=== PATIENT | female | born 1970 | race Hispanic/Latino ===

== ENCOUNTER 2023-05-14 18:27 | Inpatient (IN) | payer SELFPAY ==
--- OUTSIDE RECORDS SUMMARY | 2023-05-14 18:30 | XMS REPORT | Continuity of Care Document ---
Author Name Unknown Address [address] [place] [address] [facility] thconnect Address [address] [place] [address] Care Team Providers Care Recycling Manager Name Role Phone Pcp, Patient Does Not Have A Primary Care Physic niki Yoon Reilly Attending Clinician [phone] Doctor Unassigned, [place] Attending Clinician [facility], Adc Fam Pob I Attending Clinician Unavailab Dorothy Lira Attending Clinician [phone] DROOTHY KOCH Attending Clinician Unavailable Carol Ann Mendoza Attending Clinician [phone] Karrie Perkins MD Attending Clinician [phone] KARRIE PERKINS Attending Clinician Unavailable KARRIE PERKINS Admitting Clinician Unavailable Payers Payer Name Policy Type Policy Number Effective Date Expirati on Date Source COVID19 HRSA UNINSURED [id number] 2020 00:00:00 2020 00:00:00 Allergies, Adverse Reactions, Alerts Allergy Name Allergy Type Status Severity Reaction(s) Onset Date Inactive Date Treating Clinician Comments Source NO KNOWN ALLERGIE S Drug Class Active [facility] Social History Social Habit Start Date Stop Date Quantity Comments Source Sexual orientation U [facility] Sex Assigned At [facility] Exposure to SARS-CoV-2 (event) Not sure [facility] Smoking Status Start Date Stop Date Source Unknown if ever smoked [facility] Medications Ordered Medication Name Filled Medication Name Start Date Stop Date Current Medication? Ordering Clinician Indication Dosage Frequency Signature (SIG) Comments Components Source iohexol (OMNIPAQUE 350 BULK-100 mL) injection 120 mL 09-23 06:15: 00 09-23 06:04 :00 No 120mL 120 mL, Intravenou s, ONCE, 1 dose, 09/24/19 at 0115, Routine [facility] piperacilli n-tazobacta m (ZOSYN) 3.375 gram/50 mL Piggyback RTU 3.375 g 09-23 05:53: 00 09-23 06:51 :00 No 3.375g 3.375 g, IV Piggyback, ONCE, 1 dose, 09/24/19 at 0100, 50 mL
Reas on for Anti-Infec tive: Documented Infection< br>Documen jose Infection Site: Abdominal< br>Duratio n of Therapy: Other (see Comments) [facility] NaCl 0.9% (NS) bolus infusion 1,000 mL 09-23 03:45: 00 09-23 05:00 :00 No 1000mL at 999 mL/hr, 1,000 mL, IV Infusion, ONCE, 1 dose, 09/23/19 at 2245, BIJAN [facility] ondansetron (ZOFRAN (PF)) injection 4 mg 09-23 03:34: 00 09-23 03:51 :00 No 4mg 4 mg, Slow IV Push, ONCE, 1 dose, 09/23/19 at 2245, BIJAN [facility] morpHINE injection 4 mg 09-23 03:34: 09-23 03:51 :00 No 4mg 4 mg, Slow IV Push, ONCE, 1 dose, 09/23/19 at 2245, STAT [facility] traMADol (ULTRAM) 50 mg tablet 09-23 00:00: 00 Yes [id number] 50mg Take 1 tablet by mouth every 6 (six) hours as needed for Pain (scale 7-10). [facility] traMADol (ULTRAM) 50 mg tablet 09-23 00:00: 00 Yes [id number] 50mg Take 1 tablet by mouth every 6 (six) hours as needed for Pain (scale 7-10). [facility] traMADol (ULTRAM) 50 mg tablet 09-23 00:00: 00 Yes [id number] 50mg Take 1 tablet by mouth every 6 (six) hours as needed for Pain (scale 7-10). [facility] traMADol (ULTRAM) 50 mg tablet 09-23 00:00: 00 Yes [id number] 50mg Take 1 tablet by mouth every 6 (six) hours as needed for Pain (scale 7-10). [facility] Vital Signs Vital Name Observation Time Observation Value Comments S deepak Systolic blood pressure 2019-09-24 10:33:00 126 mm[Hg] [facility] Diastolic blood pressure 2019-09-24 10:33:00 78 mm[Hg] [facility] Heart rate 2019-09-24 10:33:00 67 /min [facility] Respiratory rate 2019-09-24 10:33:00 18 /min [facility] Oxygen saturation in Arterial blood by Pulse oximetry 2019-09-24 10:33:00 98 /min [facility] Body temperature 2019-09-24 03:27:[address] [facility] Body weight 2019-09-24 03:27:00 72.576 kg [facility] Procedures Procedure Date / Time Performed Performing Clinician Source REFERRAL- REQUEST/RESPONSE 2023-02-18 05:01:00 Doctor Unassigned, [place] [facility] COVID-19 (PCR MOLECULAR TESTING) 2019-09-24 08:00:[address] [facility] LACTIC ACID WHOLE BLOOD 2019-09-24 06:21:[address] [facility] URINALYSIS 2019-09-24 05:23:00 Carol Ann Henderson Unive [facility] LIPASE 2019-09-24 03:55:00 Carol Ann Henderson [facility] HEPATIC FUNCTION PANEL ([id number]) (ALB,T.PRO,BILI T,BU/BC,ALT,AST,ALK PHOS) 2019-09-24 03:55:[address] [facility] BASIC METABOLIC PANEL (NA, K, CL, CO2, GLUCOSE, BUN, CREATININE, CA) 2019-09-24 03:55:[address] [facility] CBC WITH DIFFERENTIAL 2019-09-24 03:55:[address] [facility] NOTICE OF PRIVACY PRACTICES 2019-09-24 03:09:46 Doctor Unassigned, [place] [facility] CONSENT/REFUSAL FOR DIAGNOSIS AND TREATMENT 2019-09-24 03:09:31 Doctor Unassigned, [place] [facility] Encounters Start Date/Time End Date/Time Encounter Type Admission Type Attending [facility] Facility Care Department Encounter ID Source 2023-05-11 16:12:18 2023-05-11 16:12:18 Outpatient [facility] [id number] Ignacio Eric Jaden 2023-04-14 10:51:43 2023-04-14 10:51:43 Outpatient [facility] [id number] Ignacio Eric Jaden 2023-03-01 00:00:00 2023-03-01 00:00:00 Letter (Out) Yoon Reilly [facility] 1..840.114 350.1.13.10 4.2.7.2.686 [id number] [facility] 2023-02-22 00:00:00 2023-02-22 00:00:00 Patient Secure Msg Doctor Unassigned, [place] [facility] 1..840.114 350.1.13.10 4.2.7.2.686 [id number] [facility] 2023-02-18 15:22:44 2023-02-18 15:22:[address] [facility] [id number] Ignacio Eric Jaden 2023-02-18 00:00:00 2023-02-18 00:00:00 Orders Only Doctor Unassigned, [place] [facility] 1.840.114 350.1.13.10 4.2.7.2.686 [id number] [facility] 2022-11-05 09:51:31 2022-11-05 09:51:31 [address] [id number] Ignacio Eric Jaden 2022-07-27 16:13:00 2022-07-27 16:13:00 Outpatient [facility] [id number] Ignacio Eric Osceola 2022-07-21 08:39:47 2022-07-21 08:39:47 Outpatient [facility] [id number] Ignacio Eric Osceola 2022-07-15 15:38:12 2022-07-15 15:38:12 Outpatient [facility] [id number] Ignacio Eric Osceola 2020-05-24 15:10:52 2020-05-24 15:30:52 Laboratory Only [facility] 1.840.114 350.1.13.10 4.2.7.2.686 [id number] [facility] 2020-05-24 15:00:00 2020-05-24 15:21:17 Outpatient Bern[facility] [id number] [facility] 2020-05-24 15:00:00 2020-05-24 15:00:00 [facility]patient [facility] [id number] [facility] 2019-09-23 22:32:32 2019-09-24 05:35:00 Emergency Carol Ann Henderson [facility] [facility] 1..840.114 350.1.13.10 4.2.7.2.686 [id number] [facility] 2019-09-23 22:32:32 2019-09-24 05:35:00 Emergency X KARRIE PERKINS [facility] ERT [id number] [facility] Results Test Description Test Time Test Comments Results Result Co mments Source COMPREHENSIVE METABOLIC [id number] 06:53:40* Test Item Value Reference Range Interpretation Comme nts GLUCOSE (test code = 7) 92 MG/DL 70-99 BUN (test code = 2207) 13 MG/DL 6-20 CREATININE (test code = 221) 1.00 MG/DL 0.60-1.30 eGFR (2020 CKD-EPI) (test code = 05590) 67 ML/MIN/1.73 >60 CALC BUN/CREAT (test code = 2235) 13 RATIO 6-28 SODIUM (test code = 2230) 141 MEQ/L 133-146 POTASSIUM (test code = 2228) 5.3 MEQ/L 3.5-5.4 CHLORIDE (test code = 5) 105 MEQ/L 95-107 CARBON DIOXIDE (test code = 6) 25 MEQ/L 19-31 CALCIUM (test code = 2208) 10.1 MG/DL 8.5-10.5 PROTEIN, TOTAL (test code = 2228) 7.5 G/DL 6.1-8.3 ALBUMIN (test code = 2201) 4.9 G/DL 3.5-5.2 CALC GLOBULIN (test code = 2240) 2.6 G/DL 1.9-3.7 CALC A/G RATIO (test code = 2234) 1.9 RATIO 1.0-2.6 BILIRUBIN, TOTAL (test code = 2206) 0.6 MG/DL See_Comment [Automated me ssage] The system which generated this result transmitted reference range: <=1.2. The reference range was not used to interpret this result as normal/abnormal. ALKALINE PHOSPHATASE (test code = 4) 99 U/L 40-133 AST (test code = 2218) 15 U/L 9-40 ALT (test code = 2219) 17 U/L 5-40 VITAMIN D, 25 [id number] 06:37:36* Test Item Value Reference Range Interpretation Comme nts VITAMIN D, 25 OH (test code = 4958) 20 NG/ML SEE BELOW L EFFECTIVE 01/2023, PLEASE NOTE NEW METHODOLOGY IS ELECTROCHEMILUMINESCENCE BINDING ASSAY. NOTE: 25-HYDROXYVITAMIN D ASSAY INCLUDES 25-HYDROXYVITAMIN D2 AND D3. INTERPRETIVE RANGES PEDIATRIC (<17 YEARS) . . . . . . . . . . . NG/ML 20-100ADULT: INSUFFICIENT . . . . . . . . . . . . . . NG/ML <20 SUBOPTIMAL . . . . . . . . . . . . . . . NG/ML 20-29 OPTIMAL . . . . . . . . . . . . . . . . . NG/ML 30-100 TSH, THIRD [id number] 06:37:27* Test Item Value Reference Range Interpretation Comme nts TSH, THIRD GENERATION (test code = 2821) 1.210 UIU/ML 0.400-4.100 HEMOGLOBIN [id number] 04:10:33* Test Item Value Reference Range Interpretation Comme [facility] HEMOGLOBIN A1c (test code = 65710) 5.7 % 4.2-5.6 H [employer] GUIDELINES FOR HGB A1C: PREDIABETES/INCREASED RISK . . . . . . . 5.7-6.4% DIAGNOSIS OF DIABETES . . . . . . . . . >=6.5% WITH CONFIRMATION OR APPROPRIATE SYMPTOMS NOTE: ASSAY MAY BE AFFECTED BY HEMOGLOBINOPATHIES (SICKLE CELL ANEMIA, S-C DISEASE, OTHERS) OR ARTIFICIALLY LOWERED BY DECREASED RED CELL SURVIVAL (HEMOLYTIC ANEMIAS, BLOOD LOSS, ETC.). CONSIDER ALTERNATE TESTING OR LABORATORY CONSULTATION. CBC W/AUTO DIFF WITH [id number] 02:11:52* Test Item Value Reference Range Interpretation Comme nts WBC (test code = 1001) 6.3 K/UL 3.5-11.0 RBC (test code = 1002) 5.30 M/UL 3.80-5.40 HEMOGLOBIN (test code = 1003) 16.4 G/DL 11.5-15.5 H HEMATOCRIT (test code = 1004) 49.3 % 34.0-45.0 H MCV (test code = 1005) 93.0 fL 80.0-99.0 MCH (test code = 1006) 30.9 PG 25.0-33.0 MCHC (test code = 1007) 33.3 G/DL 31.0-36.0 RDW (test code = 1038) 12.2 % 11.5-15.0 NEUTROPHILS (test code = 1008) 54.4 % LYMPHOCYTES (test code = 1010) 38.3 % MONOCYTES (test code = 1011) 5.1 % EOSINOPHILS (test code = 1012) 1.4 % BASOPHILS (test code = 1013) 0.6 % IMMATURE GRANULOCYTES (test code = 1036) 0.2 % NUCLEATED RBCS (test code = 1065) 0.0 /100 WBC'S See_Comment [Automated message] The system which generated this result transmitted reference range: 0.0. The reference range was not used to interpret this result as normal/abnormal. PLATELET COUNT (test code = 1015) 379 K/UL 130-400 ABSOLUTE NEUTROPHILS (test code = 1066) 3.42 K/UL 1.50-7.50 ABSOLUTE LYMPHOCYTES (test code = 1067) 2.41 K/UL 1.00-4.00 ABSOLUTE MONOCYTES (test code = 1068) 0.32 K/UL 0.20-1.00 ABSOLUTE EOSINOPHILS (test code = 1040) 0.09 K/UL 0.00-0.50 ABSOLUTE BASOPHILS (test code = 1069) 0.04 K/UL 0.00-0.20 ABS IMMATURE GRANULOCYTES (test code = 1020) 0.01 K/UL 0.00-0.10 ABS NUCLEATED RBCS (test code = 26488) 0.00 K/UL 0.00-0.11 [facility] has important pathology staff changes effective 07/01/2022. New pathology staff will provide uninterrupted, excellent patient care and clinical consultation. See URL: [email or web address]. UNLESS OTHERWISE INDICATED, ALL TESTING PERFORMED AT [facility] [address] [place] [address] BEATER TENDER: HUONG MONTEZ M.D. CLIA NUMBER [id number] [facility] [place]. [id number] VITAMIN D, 25 [id number] 06:01:56* Test Item Value Reference Range Interpretation Comme nts VITAMIN D, 25 OH (test code = 4958) 30 NG/ML SEE BELOW NOTE: 25-HYDR OXYVITAMIN D ASSAY INCLUDES 25-HYDROXYVITAMIN D2 AND D3. METHODOLOGY IS CHEMILUMINESCENT IMMUNOASSAY. INTERPRETIVE RANGES PEDIATRIC (<17 YEARS) . . . . . . . . . . . NG/ML 20-100ADULT: INSUFFICIENT . . . . . . . . . . . . . . NG/ML <20 SUBOPTIMAL . . . . . . . . . . . . . . . NG/ML 20-29 OPTIMAL . . . . . . . . . . . . . . . . . NG/ML 30-100 UNLESS OTHERWISE INDICATED, ALL TESTING PERFORMED [facility] [address] [place] [address] BEATER TENDER: MILY ROMERO M.D. CLIA NUMBER [id number] [place]. [id number] LIPID [id number] 02:54:12* Test Item Value Reference Range Interpretation Comme nts CHOLESTEROL (test code = 2210) 243 MG/DL <200 H TRIGLYCERIDES (test code = 2232) 92 MG/DL <150 HDL CHOLESTEROL (test code = 2220) 36 MG/DL >39 L CALC LDL CHOL (test code = 2237) 186 MG/DL <100 H NOTE: CALCULATED LDL IS BASED ON AUGUSTINA-MURPHY METHOD WHICHINCLUDES ADJUSTABLE TRIGLYCERIDE:VLDL CHOLESTEROL RATIO.THIS FACTOR VARIES BY MEASURED TRIGLYCERIDE AND NON-HDLCHOLESTEROL CONCENTRATIONS WITH INCREASED CALCULATED LDL SEENIN HIGHER TRIGLYCERIDE OR LOWER NON-HDL SPECIMENS. FOR MOREINFORMATION, SEE CLIENT ANNOUNCEMENT AT [email or web address] [email or web address] RATIO LDL/HDL (test code = 2238) 5.17 RATIO <3.22 H TSH, THIRD [id number] 06:27:46* Test Item Value Reference Range Interpretation Comme nts TSH, THIRD GENERATION (test code = 2821) 0.575 UIU/ML 0.400-4.100 VITAMIN [id number] 06:27:46* Test Item Value Reference Range Interpretation Comme nts VITAMIN B-12 (test code = 2840) 989 PG/ML 200-950 H UNLESS OTHERWISE INDICATED, ALL TESTING PERFORMED [facility] [address] [place] [address] BEATER TENDER: MILY ROMERO M.D. CLIA NUMBER [id number] [place]. [id number] VITAMIN D, 25 [id number] 05:57:43* Test Item Value Reference Range Interpretation Comme nts VITAMIN D, 25 OH (test code = 4958) 11 NG/ML SEE BELOW L NOTE: 25-HYDR OXYVITAMIN D ASSAY INCLUDES 25-HYDROXYVITAMIN D2 AND D3. METHODOLOGY IS CHEMILUMINESCENT IMMUNOASSAY. INTERPRETIVE RANGES PEDIATRIC (<17 YEARS) . . . . . . . . . . . NG/ML 20-100ADULT: INSUFFICIENT . . . . . . . . . . . . . . NG/ML <20 SUBOPTIMAL . . . . . . . . . . . . . . . NG/ML 20-29 OPTIMAL . . . . . . . . . . . . . . . . . NG/ML 30-100 HEMOGLOBIN [id number] 05:08:38* Test Item Value Reference Range Interpretation Comme [facility] HEMOGLOBIN A1c (test code = 45847) 5.8 % 4.2-5.6 H CBC W/AUTO DIFF WITH [id number] 04:35:30* Test Item Value Reference Range Interpretation Comme [facility] WBC (test code = 1001) 7.5 K/UL 3.5-11.0 RBC (test code = 1002) 4.84 M/UL 3.80-5.40 HEMOGLOBIN (test code = 1003) 14.9 G/DL 11.5-15.5 HEMATOCRIT (test code = 1004) 44.0 % 34.0-45.0 MCV (test code = 1005) 90.9 fL 80.0-99.0 MCH (test code = 1006) 30.8 PG 25.0-33.0 MCHC (test code = 1007) 33.9 G/DL 31.0-36.0 RDW (test code = 1038) 12.2 % 11.5-15.0 NEUTROPHILS (test code = 1008) 48.7 % LYMPHOCYTES (test code = 1010) 43.2 % MONOCYTES (test code = 1011) 5.6 % EOSINOPHILS (test code = 1012) 1.7 % BASOPHILS (test code = 1013) 0.7 % IMMATURE GRANULOCYTES (test code = 1036) 0.1 % NUCLEATED RBCS (test code = 1065) 0.0 /100 WBC'S See_Comment [Automated [employer]] The system which generated this result transmitted reference range: 0.0. The reference range was not used to interpret this result as normal/abnormal. PLATELET COUNT (test code = 1015) 411 K/UL 130-400 H ABSOLUTE NEUTROPHILS (test code = 1066) 3.67 K/UL 1.50-7.50 ABSOLUTE LYMPHOCYTES (test code = 1067) 3.25 K/UL 1.00-4.00 ABSOLUTE MONOCYTES (test code = 1068) 0.42 K/UL 0.20-1.00 ABSOLUTE EOSINOPHILS (test code = 1040) 0.13 K/UL 0.00-0.50 ABSOLUTE BASOPHILS (test code = 1069) 0.05 K/UL 0.00-0.20 ABS IMMATURE GRANULOCYTES (test code = 1020) 0.01 K/UL 0.00-0.10 ABS NUCLEATED RBCS (test code = 34861) 0.00 K/UL 0.00-0.11 LIPID [id number] 02:35:53* Test Item Value Reference Range Interpretation Comme nts CHOLESTEROL (test code = 2210) 248 MG/DL <200 H TRIGLYCERIDES (test code = 2232) 117 MG/DL <150 HDL CHOLESTEROL (test code = 2220) 47 MG/DL >39 CALC LDL CHOL (test code = 2237) 177 MG/DL <100 H NOTE: CALCULATED LDL IS BASED ON AUGUSTINA-MURPHY METHOD WHICHINCLUDES ADJUSTABLE TRIGLYCERIDE:VLDL CHOLESTEROL RATIO.THIS FACTOR VARIES BY MEASURED TRIGLYCERIDE AND NON-HDLCHOLESTEROL CONCENTRATIONS WITH INCREASED CALCULATED LDL SEENIN HIGHER TRIGLYCERIDE OR LOWER NON-HDL SPECIMENS. FOR MOREINFORMATION, SEE CLIENT ANNOUNCEMENT AT [email or web address] RISK RATIO LDL/HDL (test code = 2238) 3.77 RATIO <3.22 H COMPREHENSIVE METABOLIC [id number] 02:35:53* Test Item Value Reference Range Interpretation Comme nts GLUCOSE (test code = 2217) 80 MG/DL 70-99 BUN (test code = 2208) 12 MG/DL 6-20 CREATININE (test code = 2214) 0.95 MG/DL 0.60-1.30 eGFR (2020 CKD-EPI) (test code = 06270) 72 ML/MIN/1.73 >60 CALC BUN/CREAT (test code = 2235) 13 RATIO 6-28 SODIUM (test code = 223) 146 MEQ/L 133-146 POTASSIUM (test code = 2228) 5.8 MEQ/L 3.5-5.4 H Analytic results reviewed and verified. Specimen received with red cells in contact with serum. Certain results may be affected. Clinical correlation is advised to determine need for recollection. CHLORIDE (test code = 2215) 107 MEQ/L 95-107 CARBON DIOXIDE (test code = 2206) 27 MEQ/L 19-31 CALCIUM (test code = 9) 10.1 MG/DL 8.5-10.5 PROTEIN, TOTAL (test code = 222) 7.5 G/DL 6.1-8.3 ALBUMIN (test code = 2201) 4.9 G/DL 3.5-5.2 CALC GLOBULIN (test code = 2240) 2.6 G/DL 1.9-3.7 CALC A/G RATIO (test code = 223) 1.9 RATIO 1.0-2.6 BILIRUBIN, TOTAL (test code = 7) 0.2 MG/DL See_Comment [Automated me ssage] The system which generated this result transmitted reference range: <=1.2. The reference range was not used to interpret this result as normal/abnormal. ALKALINE PHOSPHATASE (test code = 2204) 69 U/L 40-132 AST (test code = 2218) 19 U/L 9-40 ALT (test code = 2219) 27 U/L 5-40 CORONAVIRUS COVID-19 [id number] 08:28:00* Test Item Value Reference Range Interpretation Comme nts SARS-CoV-2 Rapid ID NOW (test code = 41529-4) Not Detected Not Detected SEMAJ (test code = SEMAJ) ID NOW COVID-19 As say is an isothermal nucleic acid amplification test intended for the qualitative detection of nucleic acid from SARS-CoV-2 viral RNA in nasopharyngeal (BAND MANAGER) specimens. It is used under Emergency Use Authorization (EUA) by FDA. The limit of detection (LOD) of the assay is 125 Genome Equivalents/mL. A positive result is indicative of the presence of SARS-CoV-2 RNA. ?Clinical correlation with patient history and other diagnostic information is necessary to determine patient infection status. A negative (Not Detected) result does not preclude SARS-CoV-2 infection. In patients with clinical symptoms and other tests that are consistent with SARS-CoV-2 infection, negative results should be treated as presumptive negative and a new specimen should be tested with alternative PCR molecular test. Invalid: Please collect a new specimen for repeat patient testing if clinically indicated. Lab Interpretation (test code = 16296-0) Normal [facility] Whole [id number] 06:26:00* Test Item Value Reference Range Interpretation Comme nts LACTIC ACID (test code = 2039768581) 1.23 mmol/L 0.3-2.6 [facility]inalysis2020-05-24 05:57:00* Test Item Value Reference Range Interpretation Comme nts APPEARANCE (test code = 0615536504) Clear Clear COLOR (test code = 9175556722) Straw Yellow A PH (test code = 5810190504) 4.8-8.0 SP GRAVITY (test code = 0760577306) 1.003-1.030 GLU U QUAL (test code = 6947187136) Normal Normal BLOOD (test code = 3234607888) 3+ Negative A KETONES (test code = 7593496637) Negative Negative PROTEIN (test code = 2887-8) Negative Negative UROBILIN (test code = 2886013211) Normal Normal BILIRUBIN (test code = 9367114220) Negative Negative NITRITE (test code = 2231237790) Negative Negative LEUK LIN (test code = 2158085652) Negative Negative RBC/HPF (test code = 9373268923) See_Comment H [Automated [employer]] The system which generated this result transmitted reference range: 0 - 3 HPF. The reference range was not used to interpret this result as normal/abnormal. WBC/HPF (test code = 4821318262) See_Comment [Automated [employer]] The system which generated this result transmitted reference range: 0 - 5 HPF. The reference range was not used to interpret this result as normal/abnormal. BACTERIA (test code = 5862007306) Few Negative A MUCOUS (test code = 0619211475) Slight Negative LPF A SQ EPITH (test code = 5914167986) HPF Lab Interpretation (test code = 60059-1) [facility] (NA, K, CL, CO2, GLUCOSE, BUN, CREATININE, CA)2019-09-24 04:18:00* Test Item Value Reference Range Interpretation Comme nts NA (test code = 0012707617) 139 mmol/L 135-145 K (test code = 0217588932) 4.0 mmol/L 3.5-5 CL (test code = 8583674675) 110 mmol/L 98-108 H CO2 TOTAL (test code = 0402691894) 20 mmol/L 23-31 L AGAP (test code = 1930373657) 2-16 BUN (test code = 2449487792) 10 mg/dL 7-23 GLUCOSE (test code = 3884533956) 105 mg/dL 70-110 CREATININE (test code = 5852209407) 0.75 mg/dL 0.5-1.04 CALCIUM (test code = 7865653757) 9.3 mg/dL 8.6-10.6 eGFR Calculation (Non-) (test code = 1064344201) mL/min/1.73m2 eGFR Calculation () (test code = 5785681359) mL/min/1.73m2 SEMAJ (test code = SEMAJ) Association of Glomerular Filtration Rate (GFR) and Staging of Kidney Disease* + --+ --+ ------+| GFR (mL/min/1.73 m2) ?| With Kidney Damage ?| ?Without Kidney Damage+ --------+ --------+ +| ?>90 ?| ?Stage one ?| ? Normal ?+ ---+ ---+ -------+| ?60-89 ?| ?Stage two ?| ? Decreased GFR ? + --+ --+ ------+| ?30-59 ?| ?Stage three ?| ? Stage three ? + --+ --+ ------+| ?15-29 ?| ?Stage four ? | ? Stage four ?+ ---+ ---+ -------+| ?<15 (or dialysis) ? ?| ?Stage five ? | ? Stage five ?+ ---+ ---+ -------+ *Each stage assumes the associated GFR level has been in effect for at least three months. ?Stages 1 to 5, with or without kidney disease, indicate chronic kidney disease. Notes: Determination of stages one and two (with eGFR >59mL/min/1.73 m2) requires estimation of kidney damage for at least three months as defined by structural or functional abnormalities of the kidney, manifested by either:Pathological abnormalities or Markers of kidney damage (including abnormalities in the composition of the blood or urine or abnormalities in imaging tests). Lab Interpretation (test code = 22586-3) Abnormal [facility] (ALB, T.PRO, BILI T, BU/BC, ALT, AST, ALK PHOS)2019-09-24 04:18:00* Test Item Value Reference Range Interpretation Comme nts TOTAL BILI (test code = 8617815590) 0.2 mg/dL 0.1-1.1 BILI UNCON (test code = 7724902832) 0.4 mg/dL 0.1-1.1 BILI CONJ (test code = 6564788780) 0.0 mg/dL 0-0.3 T PROTEIN (test code = 2528601491) 7.3 g/dL 6.3-8.2 ALBUMIN (test code = 7080825910) 4.2 g/dL 3.5-5 ALK PHOS (test code = 6734627676) 65 U/L 34-122 ALTv (test code = 1742-6) 15 U/L 5-35 AST(SGOT) (test code = 9483603946) 22 U/L 13-40 Lab Interpretation (test cod e = 87047-5) Normal [facility] [id number] 04:18:00* Test Item Value Reference Range Interpretation Comme nts LIPASE (test code = 1250950841) 116 U/L 0-220 Lab Interpretation (test cod e = 93557-0) Normal [facility]CBC WITH [id number] 04:08:00* Test Item Value Reference Range Interpretation Comme nts WBC (test code = 6690-2) See_Comment H [Automated message] The system which generated this result transmitted reference range: 4.30 - 11.10 10*3/?L. The reference range was not used to interpret this result as normal/abnormal. RBC (test code = 789-8) See_Comment [Automated message] The system which generated this result transmitted reference range: 3.93 - 5.25 10*6/?L. The reference range was not used to interpret this result as normal/abnormal. HGB (test code = 718-7) 13.3 g/dL 11.6-15 HCT (test code = 4544-3) 39.7 % 35.7-45.2 MCV (test code = 787-2) 94.7 fL 80.6-95.5 MCH (test code = 785-6) 31.7 pg 25.9-32.8 MCHC (test code = 786-4) 33.5 g/dL 31.6-35.1 RDW-SD (test code = 48913-7) 45.0 fL 39-49.9 RDW-CV (test code = 788-0) 13.1 % 12-15.5 PLT (test code = 777-3) See_Comment H [Automated message] The system which generated this result transmitted reference range: 166 - 358 10*3/?L. The reference range was not used to interpret this result as normal/abnormal. MPV (test code = 19315-3) 10.2 fL 9.5-12.9 NRBC/100 WBC (test code = 2880845446) See_Comment [Automated message] The system which generated this result transmitted reference range: 0.0 - 10.0 /100 WBCs. The reference range was not used to interpret this result as normal/abnormal. NRBC x10^3 (test code = 4074099476) <0.01 See_Comment [Automated message] The system which generated this result transmitted reference range: 10*3/?L. The reference range was not used to interpret this result as normal/abnormal. GRAN MAT (NEUT) % (test code = 770-8) 77.8 % IMM GRAN % (test code = 5798910854) 0.50 % LYMPH % (test code = 736-9) 13.8 % MONO % (test code = 5905-5) 5.7 % EOS % (test code = 713-8) 1.8 % BASO % (test code = 706-2) 0.4 % GRAN MAT x10^3(ANC) (test code = 0479910834) 14.55 10*3/uL 1.88-7.09 H IMM GRAN x10^3 (test code = 7483056396) 0.09 10*3/uL 0-0.06 H LYMPH x10^3 (test code = 731-0) 2.57 10*3/uL 1.32-3.29 MONO x10^3 (test code = 742-7) 1.06 10*3/uL 0.33-0.92 H EOS x10^3 (test code = 711-2) 0.33 10*3/uL 0.03-0.39 BASO x10^3 (test code = 704-7) 0.07 10*3/uL 0.01-0.07 Lab Interpretation (test code = 63209-6) Abnormal [facility]"
[2023-05-14] MEDS ORDERED: ONDANSETRON 4 MG/2 ML VIAL ONE (19:45)
[2023-05-14] MEDS ORDERED: MORPHINE 4 MG/ML SYR ONE ×2 (19:46→22:30)
[2023-05-14] MEDS ORDERED: NA CHLORIDE 0.9% 1,000 ML ONE ×2 (19:46→22:30)
[2023-05-14 20:22] LABS: Absolute Basophils 0.1 K/uL (0-0.5); Absolute Eosinophils 0.1 K/uL (0-0.5); Absolute Lymphocytes (CBC) 2.4 K/uL (0.7-4.9); Basophils % 0.6 % (0-1.3); Eosinophils % 0.9 % (0-4.4); Hematocrit 43.4 % (36.0-45.0); Hemoglobin 14.6 g/dL (12.0-15.0); Lymphocytes % 19.1 % (15.3-44.8); MCV 92.1 fL (80-100); MPV 8.2 fL (7.6-11.3); Platelets 427 thou/uL (152-406); RBC Red Blood Cell Count 4.72 M/uL (3.86-4.86)
[2023-05-14 21:00] LABS: Albumin 3.2 g/dL (3.4-5.0); Anion Gap 7.5 mEq/L (5.0-15.0); Bilirubin Total 1.3 mg/dL (0.2-1.0); Globulin 3.1 g/dL (2.3-3.5); Potassium 4.5 mEq/L (3.5-5.1); Protein, Total 6.3 g/dL (6.4-8.2)
--- NOTE | 2023-05-14 21:46 | RAD REPORT ---
EXAM DESCRIPTION: CTAbdomen Pelvis W Contrast - 05/14/2023 9:24 pm CLINICAL HISTORY: Abdominal pain. ABD PAIN COMPARISON: <Comparisons> TECHNIQUE: Biphasic CT imaging of the abdomen and pelvis was performed with 100 ml non-ionic IV cont rast. All CT scans are performed using dose optimization technique as appropriate and may include automated exposure control or mA/KV adjustment according to patient size. FINDINGS: The lung bases are clear. The liver, spleen, pancreas, adrenal glands and kidneys are within normal limits. Multiple dilated small bowel loops are present in the central abdomen measuring up to 4.1 cm. The loo ps appear mildly thickened and fluid-filled. There appears to be a point of transition in the left ab domen (image 46/99). This is compatible with moderate mechanical small-bowel obstruction. The appendi x is normal. Trace free fluid is seen in the pelvis. No evidence of significant lymphadenopathy. No suspicious bony findings. IMPRESSION: Moderate mechanical small-bowel obstruction.
[2023-05-14] MEDS ORDERED: FAMOTIDINE 20 MG/2 ML VIAL IV ONE (22:30)
[2023-05-14] MEDS ORDERED: METOCLOPRAMIDE 10 MG/2mL INJ ONE (22:30)
[2023-05-14] MEDS ORDERED: D5W 0 ML IV ONE (22:31)
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
[2023-05-14] MEDS ORDERED: D5 0.9 NS 1,000 ML IV ONE (22:40)
[2023-05-14] MEDS ORDERED: ALBUTEROL 2.5 MG/3 ML NEB SOL NEB PRN (22:45)
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
[2023-05-14] MEDS ORDERED: NA CHLORIDE 0.9% 1,000 ML IV SCH (23:00)
[2023-05-14 23:29] LABS: Specific Gravity > 1.030 (1.005-1.030); Urine Bilirubin NEGATIVE (Negative); Urine Blood Negative (Negative); Urine Clarity Clear (Clear); Urine Color Light-Yellow (Yellow); Urine Glucose NEGATIVE (Negative); Urine Protein NEGATIVE (Negative); Urine Urobilinogen Normal (Normal); Urine pH 6.5 (5.0-7.0)
[2023-05-15] MEDS: D5 0.9 NS 1,000 ML IV SCH (02:04)
[2023-05-15] MEDS: HEPARIN 5000 UNIT/ML 1 ML VIAL SQ SCH (02:04)
[2023-05-15 02:29] VITALS: BMI 27.6
[2023-05-15 03:39] LABS: Absolute Eosinophils 0.1 K/uL (0-0.5); Absolute Lymphocytes (CBC) 1.8 K/uL (0.7-4.9); Basophils % 0.5 % (0-1.3); Eosinophils % 1.2 % (0-4.4); Hematocrit 38.7 % (36.0-45.0); Lymphocytes % 23.2 % (15.3-44.8); MCV 93.1 fL (80-100); MPV 8.1 fL (7.6-11.3); Platelets 366 thou/uL (152-406); RBC Red Blood Cell Count 4.15 M/uL (3.86-4.86)
[2023-05-15 03:55] LABS: Anion Gap 6.3 mEq/L (5.0-15.0); Potassium 4.3 mEq/L (3.5-5.1)
[2023-05-15 07:40] LABS: Specific Gravity 1.018 (1.005-1.030); Urine Bilirubin NEGATIVE (Negative); Urine Blood Negative (Negative); Urine Clarity Clear (Clear); Urine Color Light-Yellow (Yellow); Urine Glucose NEGATIVE (Negative); Urine Protein NEGATIVE (Negative); Urine Urobilinogen Normal (Normal); Urine pH 6.5 (5.0-7.0)
[2023-05-15] MEDS ORDERED: AMLODIPINE 10 MG TAB PO SCH (09:00)
[2023-05-15] MEDS: AMLODIPINE 5 MG TAB PO SCH (09:00)
[2023-05-15] MEDS: NICOTINE 21 MG/PAT TD SCH (09:00)
--- NOTE | 2023-05-15 10:08 | RAD REPORT ---
EXAM DESCRIPTION: RAD - Abdomen 1 View (KUB) - 05/15/2023 6:24 am CLINICAL HISTORY: SBO Pain COMPARISON: Abdomen 1 View (KUB) dated 05/15/2023; Abdomen Pelvis W Contrast dated 05/14/2023 FINDINGS: Dilated small bowel loops are seen in the central abdomen appearing mildly improved since comparative CT from yesterday. Enteric tube tip is in the stomach. No free air seen. No significant bony findings. IMPRESSION: Mild improvement in SBO pattern since comparative study.
--- NOTE | 2023-05-15 10:09 | RAD REPORT ---
EXAM DESCRIPTION: RAD - Chest Single View - 05/15/2023 6:24 am CLINICAL HISTORY: r/o pneumonia Chest pain. COMPARISON: Abdomen 1 View (KUB) dated 05/15/2023 FINDINGS: Portable technique limits examination quality. The lungs are grossly clear. The heart is upper limit of normal in size. No displaced fractures.Tip o f the enteric tube is in the stomach.
--- NOTE | 2023-05-15 12:25 | P.PN ---
Subjective Date of Service: 05/15/23 Chief Complaint: Abdominal pain Denies any abdominal pain at the moment. No output from the NG tube. Reports passing flatus. Physical Examination - Vital Signs Temperature: 97.7 F Blood Pressure: 157/81 Pulse: 72 Respirations: 16 Pulse Ox (%): 96 - Physical Exam General: Alert, In no apparent distress, Oriented x3 HEENT: Mucous membr. moist/pink, Sclerae nonicteric Neck: Supple, JVD not distended Respiratory: Clear to auscultation bilaterally, Normal air movement Cardiovascular: No edema, Regular rate/rhythm, Normal S1 S2 Capillary refill: <2 Seconds Gastrointestinal: Normal bowel sounds, Soft and benign, Non-distended, No tenderness Musculoskeletal: No swelling, No tenderness Integumentary: No rashes, No cyanosis Neurological: Normal strength at 5/5 x4 extr Lymphatics: No axilla or inguinal lymphadenopathy - Studies Laboratory Data (last 24 hrs) 05/14/23 05/14/23 20:25 19:59 WBC 12.60 H Hgb 14.6 Hct 43.4 Plt Count 427 H Sodium 137 Potassium 4.5 BUN 28 H Creatinine 1.30 H Glucose 85 Total Bilirubin 1.3 H AST 11 L ALT 25 Alkaline Phosphatase 63 Lipase 26 Assessment And Plan - Current Problems (Diagnosis) (1) SBO (small bowel obstruction) Current Visit: Yes Status: Acute - Plan Small bowel obstruction: CT abd shows moderate SBO. NG tube inserted. Place, Follow up KUB shows some improvement in bowel dilatation. Continue D5NS IVF. Analgesics as needed. Gen surgeon, Dr. Berry to evaluate patient.. ANNABELLA Resolved with IV hydration Hypertension Hydralazine IV as needed for BP spikes Tobacco abuse Pt smokes 1 PPD. She is encouraged to stop smoking. Will give nicotine patch. DVT ppx: heparin
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
[2023-05-15] MEDS ORDERED: MORPHINE 2 MG/ML SYR IV PRN (18:49)
[2023-05-15] MEDS: MORPHINE 2 MG/ML SYR IV PRN (19:07)
--- NOTE | 2023-05-15 20:24 | RAD REPORT ---
EXAM DESCRIPTION: XR Abdomen, 1 View CLINICAL HISTORY: The patient is 53 years old and is Female; NG tube placement TECHNIQUE: Frontal supine view of the abdomen/pelvis. COMPARISON: No relevant prior studies available. FINDINGS: Gastrointestinal tract: Gaseous distention of the bowel in the upper abdomen. Bones/joints: Unremarkable. No acute fracture. Tubes, lines and devices: Nasogastric tube coursing below the diaphragm with tip overlying the le ft upper quadrant and sidehole just above the diaphragm. IMPRESSION: Nasogastric tube coursing below the diaphragm with tip overlying the left upper quadrant and sidehole just above the diaphragm. Electronically signed by: Marty Brown MD 05/15/2023 01:36 AM PLASTIC EXTRUSION OPERATOR Due to temporary technical issues with the PACS/Fluency reporting system, reports are being signed by the in house radiologists without review as a courtesy to insure prompt reporting. The interpreting radiologist is fully responsible for the content of the report.
[2023-05-16 03:41] LABS: Absolute Basophils 0.1 K/uL (0-0.5); Absolute Eosinophils 0.1 K/uL (0-0.5); Absolute Lymphocytes (CBC) 1.8 K/uL (0.7-4.9); Basophils % 0.9 % (0-1.3); Eosinophils % 2.2 % (0-4.4); Hematocrit 39.8 % (36.0-45.0); Hemoglobin 13.3 g/dL (12.0-15.0); Lymphocytes % 27.8 % (15.3-44.8); MCV 92.6 fL (80-100); MPV 8.4 fL (7.6-11.3); Platelets 369 thou/uL (152-406)
[2023-05-16 04:03] LABS: Anion Gap 8.8 mEq/L (5.0-15.0); Potassium 3.8 mEq/L (3.5-5.1)
[2023-05-16] MEDS: KCL 20 MEQ/100 mL IVPB 20 MEQ/100 ML BAG IV SCH (06:15)
[2023-05-16] MEDS: POTASSIUM CL SA 10 MEQ TAB PO ONE (08:44)
--- NOTE | 2023-05-16 13:19 | P.PN ---
Subjective Date of Service: 05/16/23 Chief Complaint: Abdominal pain Patient report mild abdominal pain. She denies nausea NG tube with no significant output. Physical Examination - Vital Signs Temperature: 97.6 F Blood Pressure: 165/74 Pulse: 66 Respirations: 18 Pulse Ox (%): 96 - Physical Exam General: Alert, In no apparent distress, Oriented x3 HEENT: Other (NG tube to suction) Neck: JVD not distended Respiratory: Clear to auscultation bilaterally, Normal air movement Cardiovascular: No edema, Regular rate/rhythm, Normal S1 S2 Gastrointestinal: Normal bowel sounds, Soft and benign, Non-distended, No tenderness Musculoskeletal: No swelling Integumentary: No rashes Neurological: Normal strength at 5/5 x4 extr Assessment And Plan - Current Problems (Diagnosis) (1) SBO (small bowel obstruction) Current Visit: Yes Status: Acute - Plan Small bowel obstruction: CT abd shows moderate SBO. NG tube in place Surgery Dr. Berry is following and planning laparoscopic exploration. Continue D5NS IVF. Analgesics as needed. ANNABELLA Resolved with IV hydration Hypertension Hydralazine IV as needed for BP spikes Tobacco abuse Nicotine patch. DVT ppx: heparin
[2023-05-16] MEDS: HYDRALAZINE HCL 20 MG/ML VIAL IV PRN (13:42)
[2023-05-16] MEDS: PHENOL 1.4% ORAL SPRAY 180ML MM PRN (13:46)
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
[2023-05-16] MEDS: ACETAMINOPHEN 325 MG TABLET PO PRN (16:11)
[2023-05-16] MEDS ORDERED: SODIUM CHLORIDE 0.9% 10ML INJ IV PRN (21:47)
[2023-05-16] MEDS: PANTOPRAZOLE 40 MG INJ IVP SCH (22:00)
[2023-05-17 04:37] LABS: Anion Gap 8.7 mEq/L (5.0-15.0); Potassium 3.7 mEq/L (3.5-5.1)
[2023-05-17] MEDS: KCL 20 MEQ/100 mL IVPB 20 MEQ/100 ML BAG IV SCH (06:22)
--- NOTE | 2023-05-17 08:09 | RAD REPORT ---
EXAM DESCRIPTION: RAD - Abdomen 1 View (KUB) - 05/17/2023 4:26 am CLINICAL HISTORY: sbo COMPARISON: Abdomen 1 View (KUB) dated 05/15/2023; Abdomen 1 View (KUB) dated 05/15/2023 TECHNIQUE: Single AP view of the abdomen. FINDINGS: Few residual mildly distended small bowel loops in the left hemiabdomen. Overall, the ashkan zahra is slightly improved. Enteric tube unchanged in position. No air-fluid levels, free air, or pneum atosis. No suspicious calcifications. No significant bony abnormality. IMPRESSION: Continued mild improvement of small bowel distention.
[2023-05-17] MEDS ORDERED: propofoL 200 MG/20 ML VIAL IV ONE (11:17)
[2023-05-17] MEDS ORDERED: ONDANSETRON 4 MG/2 ML VIAL ONE (11:17)
[2023-05-17] MEDS ORDERED: LIDOCAINE 2% MPF 5 ML VIAL ONE (11:17)
[2023-05-17] MEDS ORDERED: MIDAZOLAM HCL 2 MG/2 ML INJ ONE (11:17)
[2023-05-17] MEDS ORDERED: FENTANYL CITR 100 MCG/2 ML ONE ×2 (11:17→13:09)
[2023-05-17] MEDS ORDERED: ROCURONIUM 50 MG/5 ML VIAL IV ONE (11:17)
[2023-05-17] MEDS: HYDROMORPHONE HCL 2 MG/ML inj ONE (11:22)
[2023-05-17] MEDS: Ringers Lactate 1,000 ML IV ONE ×2 (11:37→13:49)
[2023-05-17] MEDS: CIPROFLOXACIN 400mg IV 400 MG/200 ML BAG IV ONE (12:31)
[2023-05-17] MEDS ORDERED: dexAMETHasone 4 MG/ML VIAL ONE (13:09)
[2023-05-17] MEDS ORDERED: GLYCOPYRROLATE 0.2 MG/ML SYR ONE (13:51)
[2023-05-17] MEDS ORDERED: NEOSTIGMINE 1 MG/ML -10 ML VIAL ONE (13:51)
--- NOTE | 2023-05-17 13:51 | P.PN ---
Subjective Date of Service: 05/17/23 Chief Complaint: Abdominal pain Patient report abdominal pain and nausea overnight NG tube with no significant output. Physical Examination - Vital Signs Temperature: 98.0 F Blood Pressure: 148/85 Pulse: 82 Respirations: 16 Pulse Ox (%): 95 - Physical Exam General: Alert, In no apparent distress, Oriented x3 HEENT: Mucous membr. moist/pink Neck: JVD not distended Respiratory: Clear to auscultation bilaterally, Normal air movement Cardiovascular: No edema, Regular rate/rhythm, Normal S1 S2 Gastrointestinal: Soft and benign, Non-distended, No tenderness Musculoskeletal: No swelling Integumentary: No rashes, No cyanosis Neurological: Normal strength at 5/5 x4 extr Assessment And Plan - Current Problems (Diagnosis) (1) SBO (small bowel obstruction) Current Visit: Yes Status: Acute - Plan Small bowel obstruction: CT abd shows moderate SBO. NG tube in place-minimal drainage Surgery Dr. Berry, recommend laparoscopic exploration today. Continue IV fluid. Patient is n.p.o. Analgesics as needed. ANNABELLA Resolved with IV hydration Hypertension Hydralazine IV as needed for BP spikes Tobacco abuse Nicotine patch. DVT ppx: heparin
[2023-05-17] MEDS ORDERED: KETOROLAC 30 MG/ML INJ ONE (14:04)
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
[2023-05-17] MEDS ORDERED: SODIUM CHLORIDE 0.9% 10ML INJ IV PRN (14:15)
[2023-05-17] MEDS: HYDROMORPHONE HCL 1 MG/ML INJ ONE ×2 (14:39→14:50)
--- NOTE | 2023-05-17 15:23 | RAD REPORT ---
EXAM DESCRIPTION: RAD - Abdomen 1 View (KUB) - 05/17/2023 3:04 pm CLINICAL HISTORY: Placement of NGT/OGT. Post Insertion. Pain COMPARISON: <Comparisons> FINDINGS: Midline skin ronni are noted. Enteric tube tip is in the stomach. Mildly prominent gas-f illed small bowel loops are present in the left abdomen, and non organized fashion.
[2023-05-17] MEDS ORDERED: NA CHLORIDE 0.9% 1,000 ML ONE (15:41)
[2023-05-17] MEDS ORDERED: HYDROMORPHONE HCL 1 MG/ML INJ ONE ×2 (15:41→23:41)
[2023-05-17] MEDS: NA CHLORIDE 0.9% 1,000 ML IV SCH (15:44)
[2023-05-17] MEDS: HYDROMORPHONE HCL 1 MG/ML INJ IV PRN (15:44)
[2023-05-17] MEDS ORDERED: CEFOXITIN SODIUM 1 GM/VIAL ONE ×2 (17:19→23:01)
[2023-05-17] MEDS ORDERED: NA CHLORIDE 0.9% 50 ML ONE ×2 (17:19→23:29)
[2023-05-17] MEDS: CEFOXITIN 1 GM in NA CHLORIDE 0.9% 50 ML IVPB SCH (17:22)
[2023-05-17] MEDS ORDERED: MORPHINE 2 MG/ML SYR ONE (20:40)
[2023-05-17] MEDS ORDERED: NA CHLORIDE 0.9% 100 ML ONE (23:01)
[2023-05-18] MEDS ORDERED: NA CHLORIDE 0.9% 1,000 ML ONE ×2 (02:34→11:26)
[2023-05-18] MEDS ORDERED: MORPHINE 2 MG/ML SYR ONE ×2 (02:56→07:47)
[2023-05-18] MEDS ORDERED: HYDROMORPHONE HCL 1 MG/ML INJ ONE ×2 (06:06→11:32)
[2023-05-18] MEDS ORDERED: NA CHLORIDE 0.9% 50 ML ONE (06:12)
[2023-05-18 06:59] LABS: Absolute Basophils 0.1 K/uL (0-0.5); Absolute Lymphocytes (CBC) 1.6 K/uL (0.7-4.9); Basophils % 0.5 % (0-1.3); Hematocrit 42.1 % (36.0-45.0); Lymphocytes % 9.2 % (15.3-44.8); MCV 92.3 fL (80-100); Platelets 395 thou/uL (152-406); RBC Red Blood Cell Count 4.56 M/uL (3.86-4.86)
[2023-05-18 07:17] LABS: Anion Gap 8.6 mEq/L (5.0-15.0); Potassium 4.6 mEq/L (3.5-5.1)
--- NOTE | 2023-05-18 07:41 | P.PN ---
Date of Service: 05/18/23 Subjective: Doing okay Abdominal pain continues Feels IV pains meds aren't lasting too long but morphine is helping Thinks she passed some flatus overnight; sore throat ROS: 10 point ROS as noted above, otherwise negative Physical Exam: Gen: Alert, Oriented, NAD HEENT: Normal conjunctiva, sclera anicteric CV: Regular rate & rhythm, no edema Pulm: nonlabored respirations on 3L NC, clear bilaterally Abd: soft, mild abdominal tenderness, dressing in place Neuro: normal speech, normal affect NGT in place with dark brown output Vitals Reviewed Problem List: Small Bowel Obstruction / Perforation with RLQ stricture s/p small bowel resection with anastomosis, appendectomy (05/17) Intraabdominal adhesions s/p extensive lysis of ahdesions (05/17) ANNABELLA, resolved Hypertension Tobacco Use Small Bowel Obstruction / Perforation with RLQ stricture s/p small bowel resection with anastomosis, appendectomy (05/17) Intraabdominal adhesions s/p extensive lysis of ahdesions (05/17) CT abd (05/14): moderate SBO. NG tube in place to LIWS with minimal drainage General surgery - Dr. Berry is following Found small bowel self-contained perforation with stricture RLQ, inflammed appendix, Intraabdominal adhesions s/p small bowel resection with anastomosis, appendectomy, extensive lysis of ahdesions (05/17) Serial abdominal exams Continue IV fluids while NPO Continue PPI PRN analgesics / antiemetics ANNABELLA, resolved Resolved with IV fluids Hypertension Hydralazine IV PRN Tobacco Use Continue Nicotine patch VTE: SCD for now Code: Full Dispo: Home, ~2-3 days; downgrade from ICU Pending OR recovery, surgery recommendations
[2023-05-18] MEDS ORDERED: NICOTINE 21 MG/PAT TD ONE (07:45)
[2023-05-18] MEDS ORDERED: CEFOXITIN SODIUM 1 GM/VIAL ONE (08:10)
[2023-05-18] MEDS: PANTOPRAZOLE 40 MG INJ IVP SCH (08:17)
[2023-05-18 09:48] LABS: Blood Morphology Comment NOT SEEN (NOT SEEN); Platelet Estimate ADEQ; White Blood Cell Scan OK (OK)
--- NOTE | 2023-05-18 12:36 | PN ---
Subjective: The patient is doing well. No complaint. NG tube is minimal. Bowel sounds absent. No shortness of breath. No chest pain. Objective: Chest: Clear. Abdomen: Soft and depressible. Intact surgical site. Bowel sounds negative. Extremities: Good capillary refill. Laboratory Data: Blood work reviewed. Plan: Incentive spirometry, SCDs, ambulation. Continue antibiotics. Continue n.p.o. Transfer to [facility] floor. KERVIN/DAMIEN Voice ID: [id number] Report ID: [id number]
[2023-05-18] MEDS: METRONIDAZOLE 500mg IVPB 500 MG/100 ML BAG IV SCH (16:25)
[2023-05-18] MEDS: CIPROFLOXACIN 400mg IV 400 MG/200 ML BAG IV SCH (20:48)
[2023-05-19 06:18] LABS: Absolute Eosinophils 0.1 K/uL (0-0.5); Absolute Lymphocytes (CBC) 1.4 K/uL (0.7-4.9); Basophils % 0.2 % (0-1.3); Eosinophils % 0.9 % (0-4.4); Hematocrit 37.4 % (36.0-45.0); Hemoglobin 12.8 g/dL (12.0-15.0); Lymphocytes % 11.9 % (15.3-44.8); MCV 91.4 fL (80-100); MPV 8.1 fL (7.6-11.3); Platelets 367 thou/uL (152-406); RBC Red Blood Cell Count 4.09 M/uL (3.86-4.86)
[2023-05-19 06:28] LABS: Anion Gap 12.9 mEq/L (5.0-15.0); Magnesium 1.9 mg/dL (1.6-2.4); Potassium 3.9 mEq/L (3.5-5.1)
[2023-05-19] MEDS: ONDANSETRON 4 MG/2 ML VIAL IV PRN (08:37)
[2023-05-19] MEDS: KCL 20 MEQ/100 mL IVPB 20 MEQ/100 ML BAG IV SCH ×2 (09:00→11:39)
--- NOTE | 2023-05-19 12:13 | P.PN ---
Date of Service: 05/19/23 Subjective: Feeling better today Abdominal pain slowly improving No BM or flatus yet Ambulating with assistance afebrile ROS: 10 point ROS as noted above, otherwise negative Physical Exam: Gen: Alert, Oriented, NAD HEENT: Normal conjunctiva, sclera anicteric CV: Regular rate & rhythm, no edema Pulm: nonlabored respirations on room air, clear bilaterally Abd: soft, mild abdominal tenderness, dressing in place Neuro: normal speech, normal affect NGT in place with dark brown output Vitals Reviewed Problem List: Small Bowel Obstruction / Perforation with RLQ stricture s/p small bowel resection with anastomosis, appendectomy (05/17) Intraabdominal adhesions s/p extensive lysis of ahdesions (05/17) ANNABELLA, resolved Hypertension Tobacco Use Small Bowel Obstruction / Perforation with RLQ stricture s/p small bowel resection with anastomosis, appendectomy (05/17) Intraabdominal adhesions s/p extensive lysis of ahdesions (05/17) CT abd (05/14): moderate SBO. NG tube in place to LIWS with minimal drainage General surgery - Dr. Berry is following Found small bowel self-contained perforation with stricture RLQ, inflammed appendix, Intraabdominal adhesions s/p small bowel resection with anastomosis, appendectomy, extensive lysis of ahdesions (05/17) Serial abdominal exams Continue IV fluids while NPO Continue PPI PRN analgesics / antiemetics ANNABELLA, resolved Resolved with IV fluids Hypertension Hydralazine IV PRN Tobacco Use Continue Nicotine patch VTE: heparin sq Code: Full Dispo: Home, ~2 days Pending OR recovery, surgery recommendations
--- NOTE | 2023-05-19 14:45 | PN ---
Date of Progress Note: 05/19/2023 Diagnosis: Status post laparotomy with bowel resection. Subjective: Patient is doing well. No complaint. No nausea. NG tube is minimal. Objective: Vital Signs: Stable. Chest: Clear. Abdomen: Soft and depressible. Decreased bowel sounds. Extremities: Good capillary refill. Plan: We are going to discontinue NG tube, it has been bothering her. We are going to give her ice chips and probably tomorrow restart diet, out of bed to ambulate, and incentive spirometry is importa nt. HM/MODL Voice ID: [id number] Report ID: [id number]
[2023-05-19] MEDS ORDERED: ALBUTEROL 2.5 MG/3 ML NEB SOL NEB PRN (16:49)
[2023-05-20 06:16] LABS: Absolute Basophils 0.1 K/uL (0-0.5); Absolute Eosinophils 0.2 K/uL (0-0.5); Absolute Lymphocytes (CBC) 1.7 K/uL (0.7-4.9); Basophils % 0.9 % (0-1.3); Eosinophils % 2.5 % (0-4.4); Hematocrit 36.2 % (36.0-45.0); Hemoglobin 12.1 g/dL (12.0-15.0); MCV 92.8 fL (80-100); Platelets 365 thou/uL (152-406); RBC Red Blood Cell Count 3.91 M/uL (3.86-4.86)
[2023-05-20 06:32] LABS: Anion Gap 11.9 mEq/L (5.0-15.0); Potassium 3.9 mEq/L (3.5-5.1)
--- NOTE | 2023-05-20 09:26 | P.PN ---
Date of Service: 05/20/23 Subjective: Feeling better today abdominal pain continues to improve trial of clear liquids for lunch. advance as tolerated no acute events overnight no BM or flatus yet. Burping more today afebrile ROS: 10 point ROS as noted above, otherwise negative Physical Exam: Gen: Alert, Oriented, NAD HEENT: Normal conjunctiva, sclera anicteric CV: Regular rate & rhythm, no edema Pulm: nonlabored respirations on room air, clear bilaterally Abd: soft, mild abdominal tenderness, dressing in place Neuro: normal speech, normal affect Vitals Reviewed Problem List: Small Bowel Obstruction / Perforation with RLQ stricture s/p small bowel resection with anastomosis, appendectomy (05/17) Intraabdominal adhesions s/p extensive lysis of ahdesions (05/17) ANNABELLA, resolved Hypertension Tobacco Use Small Bowel Obstruction / Perforation with RLQ stricture s/p small bowel resection with anastomosis, appendectomy (05/17) Intraabdominal adhesions s/p extensive lysis of ahdesions (05/17) CT abd (05/14): moderate SBO. General surgery - Dr. Berry is following Found small bowel self-contained perforation with stricture RLQ, inflammed appendix, Intraabdominal adhesions s/p small bowel resection with anastomosis, appendectomy, extensive lysis of ahdesions (05/17) Serial abdominal exams Continue empiric cipro / flagyl (05/18-) Clear liquids for lunch; advance to full liquid for dinner if tolerating lunch NGT removed (05/19) Continue IV fluids Continue PPI PRN analgesics / antiemetics [place] added 05/20 ANNABELLA, resolved Resolved with IV fluids Hypertension Hydralazine IV PRN Tobacco Use Continue Nicotine patch VTE: heparin sq Code: Full Dispo: Home, ~1-2 days Pending able to tolerate soft diet, passing gas
--- NOTE | 2023-05-20 11:56 | PN ---
Diagnosis: Status post laparotomy with the bowel resection. Subjective: Patient is doing great. No nausea. No vomiting. No fever. No shortness of breath. N o chest pain. Objective: Chest: Clear. Abdomen: Intact surgical site. Extremities: Good capillary refill. Plan: We will advance diet. We gave her clears. We are going to advance to a full liquid diet, and hopefully soft diet by tomorrow morning. Ambulation. DVT prophylaxis. Incentive spirometry. KERVIN/MODL Voice ID: [id number] Report ID: [id number]
[2023-05-20] MEDS: HYDROCODONE/APAP 5/325 MG TAB PO PRN (16:06)
[2023-05-20] MEDS: ENSURE CLEAR 200 ML CAN PO SCH (20:15)
--- NOTE | 2023-05-21 10:13 | P.PN ---
Date of Service: 05/21/23 Subjective: Abdominal pain continues. Patient still requiring IV pain meds No BM or flatus yet Full liquids for breakfast. advance as tolerated ambulating afebrile ROS: 10 point ROS as noted above, otherwise negative Physical Exam: Gen: Alert, Oriented, NAD HEENT: Normal conjunctiva, sclera anicteric CV: Regular rate & rhythm, no edema Pulm: nonlabored respirations on room air, clear bilaterally Abd: soft, mild abdominal tenderness, dressing in place Neuro: normal speech, normal affect Vitals Reviewed Problem List: Small Bowel Obstruction / Perforation with RLQ stricture s/p small bowel resection with anastomosis, appendectomy (05/17) Intraabdominal adhesions s/p extensive lysis of ahdesions (05/17) ANNABELLA, resolved Hypertension Tobacco Use Small Bowel Obstruction / Perforation with RLQ stricture s/p small bowel resection with anastomosis, appendectomy (05/17) Intraabdominal adhesions s/p extensive lysis of ahdesions (05/17) CT abd (05/14): moderate SBO. General surgery - Dr. Berry is following Found small bowel self-contained perforation with stricture RLQ, inflammed appendix, Intraabdominal adhesions s/p small bowel resection with anastomosis, appendectomy, extensive lysis of ahdesions (05/17) Serial abdominal exams Continue empiric cipro / flagyl (05/18-) Full liquids today; advance as tolerated NGT removed (05/19) Continue IV fluids Continue PPI PRN analgesics / antiemetics norco increased, dilaudid decreased (05/21) wean IV pain meds as tolerated ANNABELLA, resolved Resolved with IV fluids Hypertension Hydralazine IV PRN Tobacco Use Continue Nicotine patch VTE: heparin sq Code: Full Dispo: Home, ~1-2 days Pending able to tolerate soft diet, passing gas, better pain control
[2023-05-21] MEDS: HYDROCODONE/APAP 7.5/325 MG TAB PO PRN (10:44)
--- NOTE | 2023-05-21 16:39 | PN ---
Date of Progress Note: 05/21/2023 Diagnosis: Status post bowel resection and anastomosis. Subjective: Patient is doing well. No complaint. She is moving around, walking around. No shortne ss of breath. No chest pain. She has not had a bowel movement yet. She is tolerating liquids. We are advancing diet slowly because she gets bloated. Objective: Chest: Clear. Abdomen: Soft and depressible. Bowel sounds positive. Extremities: Good capillary refill. Plan: Advance diet, ambulation, incentive spirometry, and DVT prophylaxis. Whenever she is tolerati ng diet and passing flatus, then we will send her home. KERVIN/DAMIEN Voice ID: [id number] Report ID: [id number]
[2023-05-21] MEDS: HYDROMORPHONE HCL 0.5 MG/0.5 ML INJ IV PRN (20:30)
[2023-05-22 09:53] VITALS: O2SAT 96
[2023-05-22 10:55] VITALS: BP 146/85
[2023-05-22 11:27] VITALS: TEMP 98.1
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
--- NOTE | 2023-05-22 11:57 | PN ---
Date of Progress Note: 05/22/2023 Diagnosis: Status post bowel resection. Subjective: Patient is doing well. No complaint. No nausea, no vomiting. No fever. Passing flatu s, having passive movement. Last night, she had 2 episodes of pain, but she stated that was released after she sat down on the toilet and then gas passed through in the form of flatus and then she felt completely better. Right now, she does not have pain. Objective: Chest: Clear. Abdomen: Soft and depressible. Intact surgical site. Sheron intact. Extremities: Good capillary refill. Assessment And Plan: From the surgical standpoint, she can be discharged home. I just advised her a bout avoiding carbonated beverage. I encouraged ambulation, incentive spirometry, bland diet until s he sees us in a week in the office, not to lift more than 20 pounds, use the abdominal binder. KERVIN/VINIL Voice ID: [id number] Report ID: [id number]
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
== END 2023-05-22 17:47 | disposition home or self-care (01) | DRG 329 ==
LOC: ER 18:27 → ERHOLD 22:58 → 2ND 05-15 01:00 → OBSVTOIN 05-16 17:04 → 3RD-ICU 05-17 13:47 → 4TH 05-18 14:48
PROVIDERS: ADMIT Hospitalist; ATTEND Hospitalist
PROC: 0D9670Z Drainage of Stomach with Drainage Device, Via Natural or Artificial Opening (ICD-10-PCS; 2023-05-15)
PROC: 0DN80ZZ Release Small Intestine, Open Approach (ICD-10-PCS; 2023-05-17)
PROC: 0DTJ0ZZ Resection of Appendix, Open Approach (ICD-10-PCS; 2023-05-17)
PROC: 0WJG4ZZ Inspection of Peritoneal Cavity, Percutaneous Endoscopic Approach (ICD-10-PCS; 2023-05-17)
PROC: 0DB80ZZ Excision of Small Intestine, Open Approach (ICD-10-PCS; principal; 2023-05-17 13:45)
PROC: 0T9B70Z Drainage of Bladder with Drainage Device, Via Natural or Artificial Opening (ICD-10-PCS; 2023-05-18)
DX: K56.50 Intestinal adhesions [bands], unspecified as to partial versus complete obstruction (principal); K63.1 Perforation of intestine (nontraumatic); N17.9 Acute kidney failure, unspecified; I10 Essential (primary) hypertension; E87.5 Hyperkalemia; K37 Unspecified appendicitis; D72.829 Elevated white blood cell count, unspecified; F17.210 Nicotine dependence, cigarettes, uncomplicated; Z53.31 Laparoscopic surgical procedure converted to open procedure
CPT/HCPCS: 36415; 71045; 74018; 74177; 80048; 80053; 81003; 83690; 83735; 85025; 88304; 88307; 94010; 96361; 96365; 96366; 96375; 97116; 97161; 97530; 99285; C9113; G0378; J0360; J0694; J0744; J1100; J1170; J1644; J2001; J2250; J2270; J2405; J2704; J2710; J2765; J3010; J3480; J7030; J7042; J7120; Q9967